=== PATIENT | female | born 1975 | race Hispanic/Latino ===

== ENCOUNTER 2020-07-30 15:37 | Outpatient (CLI) | payer OTHER ==
[2020-07-30 16:35] LABS: Hemoglobin 9.3 g/dL (12.0-15.5); Mean Corpuscular HGB CONC 29.4 g/dL (32.0-36.0); Mean Corpuscular Hemoglobin 24.3 pg (27.0-33.0); Mean Corpuscular Volume 82.7 fl (81.6-98.3); Mean Platelet Volume 10.6 fl (7.4-10.4); Platelet Count 357 10x3/uL (150-450); RBC Distribution Width 16.4 % (11.5-14.5); Red Blood Cell (RBC) Count 3.82 10x6/uL (3.90-5.03); White Blood Cell (WBC) Count 5.4 10x3/uL (3.5-10.5)
[2020-07-30 16:39] LABS: BHCG - Serum Negative (NEGATIVE); Pregs Control Background? CLEAR/WHITE (CLR/WHITE); Pregs Control Bar Appear? YES (CONTROL BAR)
[2020-07-31 01:52] LABS: SARS-CoV-2 PCR by NAA Not Detected (NotDetected)
== END 2020-07-30 15:38 | disposition home or self-care (01) ==
LOC: CSHLAB 15:37
PROVIDERS: ATTEND Obstetrics & Gynecology
DX: Z01.812 Encounter for preprocedural laboratory examination (principal); Z20.822 Contact with and (suspected) exposure to COVID-19; N85.01 Benign endometrial hyperplasia
CPT/HCPCS: 84703; 85027; 86850; 86900; 86901; 87635; U0003; U0005

== ENCOUNTER 2020-08-03 06:08 | Day surgery (SDC) | payer OTHER ==
[2020-08-02 10:13] VITALS: BMI 34.9
[2020-08-03] MEDS ORDERED: Gabapentin 300 MG CAP ONE (06:24)
[2020-08-03] MEDS ORDERED: CeleCOXIB 100 MG CAP ONE (06:24)
[2020-08-03] MEDS ORDERED: Famotidine/PF 20 mg/2ml Vial ONE (06:25)
[2020-08-03] MEDS ORDERED: Lidocaine 1% MPF 2 ML VIAL ONE (06:45)
[2020-08-03] MEDS ORDERED: EPINEPHrine 1 MG/ML AMP ONE (06:54)
[2020-08-03] MEDS ORDERED: Bupivacaine PF 0.5% 30 ML VIAL ONE (06:54)
[2020-08-03] MEDS ORDERED: Lidocaine 2% Jelly 5 ML TUBE ONE (07:11)
[2020-08-03] MEDS ORDERED: Lidocaine 1% PF 5 ML VIAL ONE (07:16)
[2020-08-03] MEDS ORDERED: Fentanyl 100 MCG/2 ML VIAL ONE ×2 (07:16→10:34)
[2020-08-03] MEDS ORDERED: PROPOFOL 20 ML ONE (07:16)
[2020-08-03] MEDS ORDERED: Rocuronium Bromide 10 MG/ML (10ML VIAL) ONE (07:16)
[2020-08-03] MEDS ORDERED: Midazolam HCl 2 mg/2 ml Vial ONE (07:28)
[2020-08-03] MEDS ORDERED: Ropivacaine 0.2% 550 ML 750 ML NERVE BLCK SCH (08:00)
[2020-08-03] MEDS ORDERED: Ondansetron PF 4 MG/2 ML Vial ONE (09:28)
[2020-08-03] MEDS ORDERED: Ketorolac Tromethamine 15 MG/ML VIAL ONE (09:28)
== END 2020-08-03 15:50 | disposition home or self-care (01) ==
LOC: CSHSDC 06:08
PROVIDERS: ATTEND Obstetrics & Gynecology
PROC: 0UT94ZZ Resection of Uterus, Percutaneous Endoscopic Approach (ICD-10-PCS; principal; 2020-08-03)
PROC: 0UT74ZZ Resection of Bilateral Fallopian Tubes, Percutaneous Endoscopic Approach (ICD-10-PCS; principal; 2020-08-03)
DX: N80.0 Endometriosis of uterus (principal); D25.9 Leiomyoma of uterus, unspecified; N83.8 Other noninflammatory disorders of ovary, fallopian tube and broad ligament; N70.11 Chronic salpingitis; D64.9 Anemia, unspecified; E78.00 Pure hypercholesterolemia, unspecified; E11.9 Type 2 diabetes mellitus without complications; K21.9 Gastro-esophageal reflux disease without esophagitis; E78.5 Hyperlipidemia, unspecified; I10 Essential (primary) hypertension; E66.8 Other obesity; Z68.35 Body mass index [BMI] 35.0-35.9, adult; Z79.84 Long term (current) use of oral hypoglycemic drugs; Z79.899 Other long term (current) drug therapy
CPT/HCPCS: 88307; A4306; J0171; J0690; J1885; J2250; J2405; J2704; J2795; J3010; S0020; S0028